=== PATIENT | female | born 1990 | race Caucasian/White ===

== ENCOUNTER 2019-03-07 23:13 | Emergency (ER) | payer MEDICAID ==
[~2019-03-07] VITALS: Ht 160 cm; Wt 52.2 kg
[2019-03-07] MEDS ORDERED: HYDROXYCHLOROQ200 M1 PO (23:22)
[2019-03-07] MEDS ORDERED: KIDNEY MEDICATION (23:23)
[2019-03-07 23:54] LABS: INFLUENZA A ANTIGEN Negative (Negative)
[2019-03-08] MEDS ORDERED: TAMIFLU75 MG PO (00:06)
[2019-03-08] MEDS ORDERED: HYDROCODON-ACE1 EAC8 PO (00:17)
[2019-03-08 00:24] VITALS: BP 104/69
== END 2019-03-08 00:25 | disposition home or self-care (01) ==
LOC: M.ERS 23:13
PROVIDERS: Emergency Medicine
DX: J10.1 Influenza due to other identified influenza virus with other respiratory manifestations (principal)